=== PATIENT | female | born 1985 | race Asian ===

== ENCOUNTER 2018-05-09 23:01 | Emergency (ER) | payer OTHER ==
[~2018-05-09] VITALS: Ht 172.7 cm; Wt 56.2 kg
[2018-05-09] MEDS ORDERED: DiphenhydrAMINE 50mg/ml Inj IVP ONE (23:15)
[2018-05-09] MEDS ORDERED: Metoclopramide 10mg/2ml Inj IVP ONE (23:15)
[2018-05-09] MEDS ORDERED: Morphine Sulfate 4mg/ml Inj (IV/IM USE ONLY) IVP ONE (23:15)
[2018-05-09 23:33] LABS: BASOPHILS % (AUTO) 0.8 % (0.0-2.0); EOSINOPHILS % (AUTO) 2.5 % (0.0-3.0); HEMOGLOBIN 13.1 G/DL (12.0-16.0); LYMPHOCYTES % (AUTO) 29.7 % (20.0-45.0); MEAN CORPUSCULAR VOLUME 93 FL (80-99); MONOCYTES % (AUTO) 7.6 % (1.0-10.0); NEUTROPHILS % (AUTO) 59.5 % (45.0-75.0); PLATELET COUNT 217 K/UL (150-450); RED BLOOD COUNT 4.08 M/UL (4.20-5.40); RED CELL DISTRIBUTION WIDTH 10.2 % (11.6-14.8); WHITE BLOOD COUNT 12.1 K/UL (4.8-10.8)
[2018-05-09 23:41] LABS: INR 0.9 (0.9-1.1)
[2018-05-09 23:44] LABS: ANION GAP 12 mmol/L (5-15); BLOOD UREA NITROGEN 12 mg/dL (7-18); CALCIUM 8.4 MG/DL (8.5-10.1); CARBON DIOXIDE 24 MMOL/L (21-32); CHLORIDE 104 MMOL/L (98-107); CREATININE 0.8 MG/DL (0.55-1.30); POTASSIUM 3.7 MMOL/L (3.5-5.1); SODIUM 140 MMOL/L (136-145)
[2018-05-09 23:49] LABS: ALANINE AMINOTRANSFERASE 19 U/L (12-78); ALBUMIN 3.6 G/DL (3.4-5.0); ALBUMIN/GLOBULIN RATIO 0.9 (1.0-2.7); ALKALINE PHOSPHATASE 49 U/L (46-116); ASPARTATE AMINO TRANSFERASE 14 U/L (15-37); BILIRUBIN,TOTAL 0.3 MG/DL (0.2-1.0)
[2018-05-10 00:35] VITALS: BP 128/76
--- NOTE | 2018-05-10 01:31 | Emergency Room Report ---
History of Present Illness General Chief Complaint: Abdominal Pain Source: Patient Present Illness HPI Patient with bleeding for 3 days. Late for menses and believes she is . LNMP February. Some passing of clots. Uses tampons, slightly more than with regular period. Pain in lower abdomen started 3 hours ago. Transported by paramedics with stable VS but with pain. Pain rated 10/10, mostly constant, but slightly crampy. No NVD, dysuria, fevers. No constipation. No medicine taken. Not seen by Ob this time. IAb2 Not know blood type. Allergies: Coded Allergies: No Known Allergies (Unverified , 05/09/18) Patient History Past Medical History: see triage record Social History: Reports: smoking, alcohol use Social History Narrative with sig other Last Menstrual Period: feb Now: No : 3 Para: 0 Reviewed Nursing Documentation: PMH: Agreed; PSxH: Agreed Nursing Documentation-PMH Past Medical History: No Stated History Review of Systems All Other Systems: negative except mentioned in HPI Physical Exam Vital Signs Date Time Temp Pulse Resp B/P (MAP) Pulse Ox O2 Delivery O2 Flow Rate FiO2 05/09/18 23:04 98.4 88 16 118/70 98 Room Air Sp02 EP Interpretation: reviewed, normal General Appearance: alert, GCS 15, mild distress Head: normocephalic Eyes: bilateral eye normal inspection, bilateral eye PERRL ENT: moist mucus membranes Neck: supple Respiratory: lungs clear, normal breath sounds Cardiovascular #1: regular rate, rhythm Cardiovascular #2: 2+ radial (R) Gastrointestinal: normal inspection, normal bowel sounds, no mass, non- distended, tenderness - suprapubic area Genitourinary: no CVA tenderness, deferred - for ultrasound Musculoskeletal: back normal, gait/station normal, normal range of motion Neurologic: alert, oriented x3, grossly normal Psychiatric: anxious - and in pain Skin: normal inspection, warm/dry Medical Decision Making Diagnostic Impression: Primary Impression: Threatened miscarriage ER Course Patient presents with suprapubic pain and vaginal bleeding late for menses. Ddx : ectopic, threatened miscarriage, miscarriage, UTI amongst others. Evaluation with ultrasound and labs. Treatment with IV hydration, reglan and morphine with benadryl. Cardiac monitoring. Labs with normal WBC, H/H. Quant 5296. A+ UA clear (except blood). Ultrasound with IUP gestational sack, no cardiac activity 6 weeks pole ( may bee too early). Discussed findings.with patient and treatment plan. Patient stable for outpatient observation and treatment. Laboratory Tests Test 05/09/18 23:07 White Blood Count 12.1 K/UL (4.8-10.8) H Red Blood Count 4.08 M/UL (4.20-5.40) L Hemoglobin 13.1 G/DL (12.0-16.0) Hematocrit 38.0 % (37.0-47.0) Mean Corpuscular Volume 93 FL (80-99) Mean Corpuscular Hemoglobin 32.2 PG (27.0-31.0) H Mean Corpuscular Hemoglobin Concent 34.6 G/DL (32.0-36.0) Red Cell Distribution Width 10.2 % (11.6-14.8) L Platelet Count 217 K/UL (150-450) Mean Platelet Volume 6.8 FL (6.5-10.1) Neutrophils (%) (Auto) 59.5 % (45.0-75.0) Lymphocytes (%) (Auto) 29.7 % (20.0-45.0) Monocytes (%) (Auto) 7.6 % (1.0-10.0) Eosinophils (%) (Auto) 2.5 % (0.0-3.0) Basophils (%) (Auto) 0.8 % (0.0-2.0) Prothrombin Time 10.0 SEC (9.30-11.50) Prothrombin Time INR 0.9 (0.9-1.1) PTT 27 SEC (23-33) Sodium Level 140 MMOL/L (136-145) Potassium Level 3.7 MMOL/L (3.5-5.1) Chloride Level 104 MMOL/L (98-107) Carbon Dioxide Level 24 MMOL/L (21-32) Anion Gap 12 mmol/L (5-15) Blood Urea Nitrogen 12 mg/dL (7-18) Creatinine 0.8 MG/DL (0.55-1.30) Estimate Glomerular Filtration Rate > 60 mL/min (>60) Glucose Level 100 MG/DL (74-106) Calcium Level 8.4 MG/DL (8.5-10.1) L Total Bilirubin 0.3 MG/DL (0.2-1.0) Aspartate Amino Transferase (AST) 14 U/L (15-37) L Alanine Aminotransferase (ALT) 19 U/L (12-78) Alkaline Phosphatase 49 U/L (46-116) Total Protein 7.7 G/DL (6.4-8.2) Albumin 3.6 G/DL (3.4-5.0) Globulin 4.1 g/dL Albumin/Globulin Ratio 0.9 (1.0-2.7) L Lipase 208 U/L (73-393) Human Chorionic Gonadotropin, Quant 5296 mIU/mL (1-6) H CT/MRI/US Diagnostic Results CT/MRI/US Diagnostic Results : Imaging Test Ordered: U/S Impression see report Last Vital Signs Date Time Temp Pulse Resp B/P (MAP) Pulse Ox O2 Delivery O2 Flow Rate FiO2 05/10/18 04:25 98.2 76 17 125/73 98 Room Air Status: improved Disposition: HOME, SELF-CARE Condition: Improved Scripts [id number]/Iron Fumarate/Fa/Dss ( 19 TABLET) 1 Each Tablet 1 EACH PO DAILY, #30 TAB Prov: Jordan Burns MD 05/10/18 Acetaminophen (Tylenol) 325 Mg Tablet 650 MG ORAL Q6H PRN for Prn Pain/Headache/Temp > 101, #20 TAB 0 Refills Prov: Jordan Burns MD 05/10/18 Referrals: [facility],REFERRING (PCP) Jordan Burns MD May 10, 2018 01:31
[2018-05-10 01:57] LABS: BILIRUBIN, URINE NEGATIVE (NEGATIVE); COLOR,URINE PALE YELLOW; GLUCOSE, URINE (UA) NEGATIVE (NEGATIVE); KETONES,URINE 4+ (NEGATIVE); LEUKOCYTE ESTERASE ,URINE 1+ (NEGATIVE); NITRITE,URINE NEGATIVE (NEGATIVE); PH,URINE 6 (4.5-8.0); PROTEIN,URINE 2+ (NEGATIVE); UROBILINOGEN,URINE NORMAL MG/DL (0.0-1.0)
[2018-05-10 02:08] LABS: APPEARANCE,URINE CLOUDY
[2018-05-10] MEDS ORDERED: PRENATAL 19 TA1 EAC1 PO (02:40)
[2018-05-10] MEDS ORDERED: TYLENOL325 MG ORAL (02:40)
[2018-05-10 04:25] VITALS: BP 125/73
--- NOTE | 2018-05-10 10:23 | Diagnostic Imaging Report ---
Indication: Abdominal pain, pelvic pain, positive test Technique: Transabdominal and transvaginal images Comparison: Findings: Uterus measures 13.2 cm length by 5.6 cm AP. Unusually large gestational sac is demonstrated. This demonstrates a pole with a crown-rump length of 9 mm, corresponding estimated gestational age 6 weeks 6 days. No heart activity is demonstrated. No myometrial abnormality. Right ovary measures 2.4 cm in length. Left ovary measures 2.1 cm length. Both ovaries demonstrate normal blood flow. There is no free cul-de-sac fluid. Impression: Intrauterine gestational sac, demonstrating pole, estimated gestational age 6 weeks 6 days by crown-rump length measurement. No heart activity demonstrated, concerning for nonviable intrauterine . Correlation with serial beta hCGs is recommended. Note unusually large size a gestational sac. Significance of this is uncertain Normal ovaries
== END 2018-05-10 04:25 | disposition home or self-care (01) ==
LOC: EDBD 23:01 → EMR 23:30
DX: O20.0 Threatened abortion (principal)
CPT/HCPCS: 36415; 76801; 76830; 80053; 81003; 83690; 84702; 85025; 85610; 85730; 86850; 86900; 86901; 96361; 96374; 96375; 99284; J1200; J2270; J2765